=== PATIENT | female | born 1970 | race African-American/Black ===

== ENCOUNTER 2018-01-20 07:48 | Emergency (ER) | payer MEDICAID, OTHER ==
[~2018-01-20] VITALS: Ht 162.6 cm; Wt 102.1 kg
[2018-01-20 09:00] LABS: ABG BASE EXCESS -0.2 MMOL/L (-2.5-2.5); ABG OXYGEN SATURATION 97 % (94-100); ABG PCO2 37 MMHG (35-45); ABG PH 7.42 (7.37-7.43); ABG PO2 76 MMHG (79-93); ABG TCO2 24.8 MMOL/L (21.0-31.0)
[2018-01-20 09:01] LABS: ALLENS TEST YES-POS; INSPIRED O2 ROOM AIR; PATIENT TEMP 98.5; VENTILATOR NO
[2018-01-20] MEDS ORDERED: CETI10CA PO (09:04)
[2018-01-20] MEDS ORDERED: B/P (09:04)
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
[2018-01-20 10:20] VITALS: BP 142/91
== END 2018-01-20 10:26 | disposition home or self-care (01) ==
LOC: ER 07:50
DX: T58.91XA Toxic effect of carbon monoxide from unspecified source, accidental (unintentional), initial encounter (principal); I10 Essential (primary) hypertension; F12.10 Cannabis abuse, uncomplicated; Z87.59 Personal history of other complications of pregnancy, childbirth and the puerperium
CPT/HCPCS: 36600; 82375; 82805; 99285

== ENCOUNTER 2018-04-04 12:27 | Emergency (ER) | payer MEDICAID ==
[~2018-04-04] VITALS: Ht 162.6 cm; Wt 104.3 kg
[~2018-04-04 12:27] MED LIST: B/P; CETI10CA PO
[2018-04-04] MEDS ORDERED: KETOROLAC 60 MG/2 ML VIAL IM ONE (12:45)
[2018-04-04] MEDS ORDERED: morphine INJ 10 MG/ML 1ML (SYR OR VIAL) IJ ONE (12:45)
[2018-04-04] MEDS ORDERED: AMLO5TAB4 PO (12:46)
[2018-04-04] MEDS ORDERED: PRD20T PO (12:46)
--- NOTE | 2018-04-04 12:46 | ED Back Pain ---
General Chief Complaint: Back Problems Stated Complaint: BACK PAIN Nursing Triage Note: PT PRESENTS TO ER WITH COMPLAINT OF LOW BACK PAIN THAT RADIATES DOWN LEFT LEG. Nursing Sepsis Screen: No Definite Risk Source of Information: Patient Exam Limitations: No Limitations History of Present Illness Date Seen by Provider: Apr 04, 2018 Time Seen by Provider: 12:42 Initial Comments To ER per private vehicle with reports of severe midline low back pain that radiates down the left leg. This began 2 days ago after picking up a laundry basket to set atop the dryer. No fevers or chills. No history of cancer. No loss of bowel and bladder control and no loss of sensation of her genitals. She does have a history of a bulging disc in the low back. She takes Zanaflex at home for pain as needed but states that it doesn't really help with the pain. Location: Lumbar Spine Timing/Duration: 1-2 Days Severity: Severe Pain/Injury Location: Back Associated Symptoms: No fever; lower back pain; No loss of bladder control, No loss of bowel control Allergies and Home Medications Allergies Coded Allergies: No Known Drug Allergies (Unverified , 01/20/18) Patient Home Medication List Home Medication List Reviewed: Yes Review of Systems Constitutional: see HPI; No chills EENTM: see HPI Respiratory: no symptoms reported Cardiovascular: no symptoms reported Genitourinary: no symptoms reported Musculoskeletal: see HPI, back pain Skin: no symptoms reported Psychiatric/Neurological: No Symptoms Reported Past Afavezz-Rkbqhv-Scuzdr Hx Patient Social History Alcohol Use: Denies Use Recreational Drug Use: No Smoking Status: Never a Smoker Recent Foreign Travel: No Contact w/Someone Who Travel: No Recent Infectious Disease Expo: No Past Medical History Surgeries: Yes Section, Gallbladder Respiratory: No Cardiac: Yes Hypertension Family Medical History No Pertinent Family Hx Physical Exam Vital Signs Vital Signs - First Documented 04/04/18 12:30 Temp 98.0 Pulse 92 Resp 19 B/P (MAP) 154/118 (130) Pulse Ox 99 O2 Delivery Room Air Capillary Refill : Less Than 3 Seconds Height, Weight, BMI Height: 5'4.00" Weight: 230lbs. oz. 104.425540ba; BMI Method:Stated General Appearance: No Apparent Distress, WD/WN Neck: Full Range of Motion, Normal Inspection Respiratory: No Accessory Muscle Use, No Respiratory Distress Back: Normal Inspection; No Vertebral Tenderness Neurologic/Psychiatric: Alert, Oriented x3 Skin: Normal Color, Warm/Dry Progress/Results/Core Measures Results/Orders My Orders Orders - NORY LOBO APRN Ketorolac Injection (Toradol Injection) (04/04/18 12:45) Morphine Injection (Morphine Injection (04/04/18 12:45) Vital Signs/I&O 04/04/18 12:30 Temp 98.0 Pulse 92 Resp 19 B/P (MAP) 154/118 (130) Pulse Ox 99 O2 Delivery Room Air Blood Pressure Mean: 130 Departure Impression Primary Impression: Lumbar radiculopathy Disposition: HOME, SELF-CARE Condition: Stable Departure-Patient Inst. Decision time for Depature: 12:45 Referrals: [facility] [place] (PCP/Family) Primary Care Physician Patient Instructions: Low Back Pain (DC), Radiculopathy (DC) Add. Discharge Instructions: 1. Steroids as directed 2. Return to ER for any concerns 3. Follow-up with your doctor next week. Call tomorrow to make an appointment to be seen. All discharge instructions reviewed with patient and/or family. Voiced understanding. Scripts Amlodipine Besylate (Norvasc) 5 Mg Tablet 5 MG PO DAILY, #20 TAB Prov: NORY LOBO APRN 04/04/18 Prednisone (Prednisone) 20 Mg Tab 40 MG PO DAILY, #8 TAB Prov: NORY LOBO APRN 04/04/18 NORY LOBO APRN Apr 04, 2018 12:46
[2018-04-04 13:14] VITALS: BP 144/96
== END 2018-04-04 13:14 | disposition home or self-care (01) ==
LOC: EDUNIT# 12:27 → ER 12:28
DX: M54.16 Radiculopathy, lumbar region (principal); I10 Essential (primary) hypertension; Z98.890 Other specified postprocedural states
CPT/HCPCS: 99284

== ENCOUNTER → 2018-05-04 | Outpatient (CLI) | payer MEDICAID ==
[~2018-05-04] MED LIST changes: +AMLO5TAB4 PO; +PRD20T PO
--- NOTE | 2018-05-04 13:13 | Diagnostic Imaging Report ---
PROCEDURE: MRI lumbar spine. TECHNIQUE: Multiplanar, multisequence MRI of the lumbar spine was performed without contrast. INDICATION: Back pain. FINDINGS: There is left convexity degenerative lumbar rotoscoliosis. The vertebral body heights are well maintained. There is no spondylolysis or spondylolisthesis. No fractures are identified. The T12-L1 disc is unremarkable. The L1-L2 disc is unremarkable. The L2-L3 disc is unremarkable. There is some mild facet disease at this level. The L3-L4 disc is unremarkable. There is some facet disease and thickening of the ligamentum flavum at this level. At L4-L5, there is loss of disc height and signal intensity. There is broad-based annular bulging, facet disease, and thickening of the ligamentum flavum. There is mild central spinal stenosis with encroachment upon the lateral recess bilaterally. There is some moderate bilateral neuroforaminal encroachment, right greater than left. At L5-S1, there is broad-based annular bulging and facet disease. There is slight effacement of the ventral thecal sac. There is no focal disc extrusion or spinal stenosis. The abdominal aorta is nonaneurysmal. The kidneys are unremarkable. IMPRESSION: Moderate lower lumbar spondylosis and degenerative disc disease, as detailed above. Dictated by: Dictated on workstation # [id number]
== END ==
LOC: RAD 10:50
PROVIDERS: ATTEND Nurse Practitioner Family
DX: M48.061 Spinal stenosis, lumbar region without neurogenic claudication (principal); M47.816 Spondylosis without myelopathy or radiculopathy, lumbar region; M53.86 Other specified dorsopathies, lumbar region; M99.73 Connective tissue and disc stenosis of intervertebral foramina of lumbar region; M51.27 Other intervertebral disc displacement, lumbosacral region
CPT/HCPCS: 72148

== ENCOUNTER 2019-04-19 21:35 | Observation (INO) | payer MEDICAID ==
[~2019-04-19] VITALS: Ht 162 cm; Wt 115.0 kg
[2019-04-19] MEDS ORDERED: KETOROLAC 30 MG/ML VIAL IVP STA (21:59)
[2019-04-19] MEDS ORDERED: LACTATED RINGERS 1,000 ML IV STA (21:59)
[2019-04-19] MEDS ORDERED: LIDOCAINE 2% VISCOUS 15 ML UDC PO ONE (22:00)
[2019-04-19] MEDS ORDERED: ASPIRIN 81 MG CHEW (CHILDREN'S ASA) PO ONE (22:00)
[2019-04-19] MEDS ORDERED: ANTACID SUSP 30 ML UDC (MYLANTA) PO ONE (22:00)
--- NOTE | 2019-04-19 22:03 | ED Chest Pain ---
General Stated Complaint: CHEST PAIN Source: patient Exam Limitations: no limitations History of Present Illness Date Seen by Provider: Apr 19, 2019 Time Seen by Provider: 21:50 Initial Comments Here with central chest pain that started about 45 minutes ago and was worse but is better now. Worse with deep breathing and better with rest. Noted intermittent jaw pain to the right side over the last several days and also has had some ankle swelling. Timing/Duration: 1 hour, changing over time Severity/Quality: moderate, aching Location: central, epigastric Radiation: jaw Activities at Onset: none Prior CP/Workup: no prior cardiac workup Modifying Factors: worse with breathing ASA po HEAD MECHANIC: No NTG SL HEAD MECHANIC: No Associated Symptoms: edema (bilateral ankles); No fever/chills, No nausea/vomiting, No shortness of breath, No weakness Allergies and Home Medications Allergies Coded Allergies: No Known Drug Allergies (Unverified , 01/20/18) Home Medications Amlodipine Besylate 5 Mg Tablet, 5 MG PO DAILY Prescribed by: NORY LOBO on 04/04/18 124 Prednisone 20 Mg Tab, 40 MG PO DAILY Prescribed by: NORY LOBO on 04/04/18 1246 Patient Home Medication List Home Medication List Reviewed: Yes Review of Systems Review of Systems Constitutional: see HPI; No chills, No diaphoresis, No fever EENTM: No Symptoms Reported Respiratory: See HPI; Denies Cough, Denies Wheezing Cardiovascular: Chest Pain, Edema; Denies Lightheadedness Gastrointestinal: Abdominal Pain (epigastric); Denies Diarrhea, Denies Nausea, Denies Vomiting Genitourinary: No Symptoms Reported Musculoskeletal: No back pain, No neck pain Skin: no symptoms reported Psychiatric/Neurological: No Symptoms Reported All Other Systems Reviewed Negative Unless Noted: Yes Past Xpcsouv-Czavnr-Pxlttg Hx Past Med/Social Hx: Reviewed Nursing Past Med/Soc Hx Patient Social History Alcohol Use: Denies Use Recreational Drug Use: No Smoking Status: Never a Smoker Recent Foreign Travel: No Contact w/Someone Who Travel: No Past Medical History Surgeries: Yes Section, Gallbladder Respiratory: No Cardiac: Yes Hypertension Family Medical History Reviewed Nursing Family Hx No Pertinent Family Hx Physical Exam Vital Signs Capillary Refill : Height, Weight, BMI Height: 5'4.00" Weight: 230lbs. oz. 104.895780my; BMI Method:Stated General Appearance: No Apparent Distress, WD/WN HEENT: PERRL/EOMI, Pharynx Normal Neck: Full Range of Motion, Normal Inspection, Non Tender, Supple Respiratory: Lungs Clear, Normal Breath Sounds Cardiovascular: No Murmur, Tachycardia Gastrointestinal: Non Tender, Soft Extremity: Normal Range of Motion, Non Tender, Pedal Edema (trace bilateral pedal edema) Neurologic/Psychiatric: Alert, Oriented x3 Skin: Normal Color, Warm/Dry Progress/Results/Core Measures Results/Orders Lab Results Laboratory Tests Test 04/19/19 22:00 Range/Units White Blood Count 8.7 4.3-11.0 10^3/uL Red Blood Count 4.88 4.35-5.85 10^6/uL Hemoglobin 9.3 L 11.5-16.0 G/DL Hematocrit 34 L 35-52 % Mean Corpuscular Volume 70 L 80-99 FL Mean Corpuscular Hemoglobin 19 L 25-34 PG Mean Corpuscular Hemoglobin Concent 27 L 32-36 G/DL Red Cell Distribution Width 20.3 H 10.0-14.5 % Platelet Count 397 130-400 10^3/uL Mean Platelet Volume 9.4 7.4-10.4 FL Neutrophils (%) (Auto) 58 42-75 % Lymphocytes (%) (Auto) 33 12-44 % Monocytes (%) (Auto) 8 0-12 % Eosinophils (%) (Auto) 1 0-10 % Basophils (%) (Auto) 0 0-10 % Neutrophils # (Auto) 5.1 1.8-7.8 X 10^3 Lymphocytes # (Auto) 2.9 1.0-4.0 X 10^3 Monocytes # (Auto) 0.7 0.0-1.0 X 10^3 Eosinophils # (Auto) 0.1 0.0-0.3 10^3/uL Basophils # (Auto) 0.0 0.0-0.1 10^3/uL Prothrombin Time 13.4 12.2-14.7 SEC INR Comment 1.0 0.8-1.4 Activated Partial Thromboplast Time 28 24-35 SEC D-Dimer 0.63 H 0.00-0.49 UG/ML Sodium Level 142 135-145 MMOL/L Potassium Level 3.3 L 3.6-5.0 MMOL/L Chloride Level 106 98-107 MMOL/L Carbon Dioxide Level 25 21-32 MMOL/L Anion Gap 11 5-14 MMOL/L Blood Urea Nitrogen 9 7-18 MG/DL Creatinine 0.80 0.60-1.30 MG/DL Estimat Glomerular Filtration Rate > 60 BUN/Creatinine Ratio 11 Glucose Level 113 H 70-105 MG/DL Calcium Level 9.3 8.5-10.1 MG/DL Corrected Calcium 9.3 8.5-10.1 MG/DL Magnesium Level 2.2 1.6-2.4 MG/DL Total Bilirubin 0.2 0.1-1.0 MG/DL Aspartate Amino Transf (AST/SGOT) 8 5-34 U/L Alanine Aminotransferase (ALT/SGPT) 11 0-55 U/L Alkaline Phosphatase 108 40-136 U/L Myoglobin 17.7 10.0-92.0 NG/ML Troponin I < 0.028 <0.028 NG/ML Total Protein 7.9 6.4-8.2 GM/DL Albumin 4.0 3.2-4.5 GM/DL Lipase 35 8-78 U/L My Orders Orders - DIMITRIS TEIXEIRA MD Lidocaine 2% Viscous 15 Ml (Xylocaine Vi (04/19/19 22:00) Antacid Suspension (Mylanta Suspension (04/19/19 22:00) Lactated Ringers (Lr 1000 Ml Iv Solution (04/19/19 21:59) Ketorolac Injection (Toradol Injection) (04/19/19 21:59) Cbc With Automated Diff (04/19/19 21:59) Magnesium (04/19/19 21:59) Chest 1 View, Ap/Pa Only (04/19/19:59) Ekg Tracing (04/19/19:59) Cardiac Profile 1 (04/19/19 21:59) Comprehensive Metabolic Panel (04/19/19 21:59) Myoglobin Serum (04/19/19 21:59) Protime With Inr (04/19/19:59) Partial Thromboplastin Time (04/19/19:59) O2 (04/19/19:59) Monitor-Rhythm Ecg Trace Only (04/19/19 21:59) Lipid Panel (04/20/19 06:00) Lipase (04/19/19 21:59) Aspirin Chewable Tablet (Baby Aspirin Ch (04/19/19 22:00) Fibrin Degradation Products (04/19/19 23:26) Metoprolol Succinate (Xl) Tab (Toprol Xl (04/20/19 00:15) Medications Given in ED Current Medications Medications Dose Ordered Sig/Reji Route Start Time Stop Time Status Last Admin Dose Admin Al Hydrox/Mg Hydrox/Simethicone 30 ml ONCE ONCE PO 04/19/19 22:00 04/19/19 22:02 DC 04/19/19 22:07 30 ML Aspirin 324 mg ONCE ONCE PO 04/19/19 22:00 04/19/19 22:02 DC 04/19/19 22:08 324 MG Lidocaine HCl 15 ml ONCE ONCE PO 04/19/19 22:00 04/19/19 22:01 DC 04/19/19 22:07 15 ML Progress Progress Note : Progress Note Seen and evaluated. IV, labs, EKG, chest x-ray, ASA 324 mg by mouth, GI cocktail and Toradol 15 mg IV. LR 1 L bolus. Monitor patient. 2355: Pain is gotten better but is intermittently returning. Given her history, admission is indicated for rule out. I did discuss the case with Dr. Jacobo and she accepts patient for admission. We will consult cardiology in the morning. Admit observation status. 0005: Toprol-XL 25 mg by mouth. Patient and family agree with plan. Initial ECG Impression Date: Apr 19, 2019 Initial ECG Impression Time: 21:45 Initial ECG Rate: 100 Initial ECG Rhythm: S.Tach Comment Sinus tachycardia with left axis deviation. No evidence of ST elevation GA. No previous available for comparison. Interpreted by me. Diagnostic Imaging Diagonstic Imaging: Xray Plain Films/CT/US/NM/MRI: chest Departure Communication (Admissions) Time/Spoke to Admitting Phy: 23:55 Impression Primary Impression: Chest pain Qualified Codes: R07.9 - Chest pain, unspecified Disposition: 09 ADMITTED INPATIENT Condition: Stable Admissions Decision to Admit Reason: Admit from ER (General) Decision to Admit/Date: Apr 19, 2019 Time/Decision to Admit Time: 23:55 Departure-Patient Inst. Referrals: [facility] (PCP/Family) Primary Care Physician DIMITRIS TEIXEIRA MD Apr 19, 2019 22:03
[2019-04-19 22:06] LABS: BASOPHILS % (AUTO) 0 % (0-10); EOSINOPHILS # (AUTO) 0.1 10^3/uL (0.0-0.3); EOSINOPHILS % (AUTO) 1 % (0-10); HEMATOCRIT 34 % (35-52); HEMOGLOBIN 9.3 G/DL (11.5-16.0); LYMPHOCYTES # (AUTO) 2.9 X 10^3 (1.0-4.0); LYMPHOCYTES % (AUTO) 33 % (12-44); MEAN CORPUSCULAR HEMOGLOBIN 19 PG (25-34); MEAN CORPUSCULAR HGB CONC 27 G/DL (32-36); MEAN CORPUSCULAR VOLUME 70 FL (80-99); MEAN PLATELET VOLUME 9.4 FL (7.4-10.4); MONOCYTES # (AUTO) 0.7 X 10^3 (0.0-1.0); MONOCYTES % (AUTO) 8 % (0-12); NEUTROPHILS # (AUTO) 5.1 X 10^3 (1.8-7.8); NEUTROPHILS % (AUTO) 58 % (42-75); PLATELET COUNT 397 10^3/uL (130-400); RED CELL DISTRIBUTION WIDTH 20.3 % (10.0-14.5); WHITE BLOOD COUNT 8.7 10^3/uL (4.3-11.0)
[2019-04-19 22:34] LABS: PROTHROMBIN TIME PATIENT 13.4 SEC (12.2-14.7)
[2019-04-19 22:39] LABS: ALANINE AMINOTRANSFERASE 11 U/L (0-55); ALKALINE PHOSPHATASE 108 U/L (40-136); BILIRUBIN,TOTAL 0.2 MG/DL (0.1-1.0); BUN/CREATININE RATIO 11; CALCIUM 9.3 MG/DL (8.5-10.1); CARBON DIOXIDE 25 MMOL/L (21-32); CHLORIDE 106 MMOL/L (98-107); GFR ESTIMATED > 60; GLUCOSE 113 MG/DL (70-105); LIPASE 35 U/L (8-78); MAGNESIUM 2.2 MG/DL (1.6-2.4); POTASSIUM 3.3 MMOL/L (3.6-5.0); SODIUM 142 MMOL/L (135-145); TOTAL PROTEIN 7.9 GM/DL (6.4-8.2)
[2019-04-20] MEDS ORDERED: morphine INJ 10 MG/ML 1ML (SYR OR VIAL) IV STA (00:20)
[2019-04-20] MEDS ORDERED: NITROGLYCERIN 0.4 MG SL TABS BTL 25'S SL ONE (00:21)
[2019-04-20] MEDS ORDERED: NITROGLYCERIN 0.4 MG SL TABS BTL 25'S SL PRN ×2 (00:30→03:30)
[2019-04-20 01:30] VITALS: BP 137/72
--- NOTE | 2019-04-20 01:30 | NUR ---
ARYAN BALL admitted to room 422-1, with an admitting diagnosis of chest pain, on 04/19/19 from ED via wheelchair, accompanied by staff. ARYAN BALL introduced to surroundings, call light, bed controls, phone, TV, temperature control, lights, meal times, smoking policy, visitor policy, side rail policy, bathrooms and showers. Patient Rights given to patient in the handbook. ARYAN BALL verbalizes understanding that [facility] is not responsible for the loss or damage to any personal effects or valuables that are kept in the patients posession during their hospitalization.
--- NOTE | 2019-04-20 01:30 | NUR ---
ARYAN BALL admitted to room 422-1, with an admitting diagnosis of CHEST PAIN, on 04/19/19 from ED via WHEELCHAIR, accompanied by STAFF.ARYAN BALL introduced to surroundings, call light, bed controls, phone, TV, temperature control, lights, meal times, smoking policy, visitor policy, side rail policy, bathrooms and showers. Patient Rights given to patient in the handbook. ARYAN BALL verbalizes understanding that [facility] is not responsible for the loss or damage to any personal effects or valuables that are kept in the patients posession during their hospitalization.
[2019-04-20] MEDS ORDERED: NS IV 1000 ML 1,000 ML ONE (01:52)
[2019-04-20] MEDS: NS IV 1000 ML 1,000 ML IV SCH (03:56)
[2019-04-20] MEDS: morphine INJ 4 MG/ML 1 ML (VIAL/SYRINGE) IV PRN ×2 (03:56→23:41)
[2019-04-20 04:00] VITALS: BP 128/79
[2019-04-20 04:36] LABS: BASOPHILS % (AUTO) 0 % (0-10); EOSINOPHILS % (AUTO) 0 % (0-10); HEMATOCRIT 35 % (35-52); HEMOGLOBIN 9.4 G/DL (11.5-16.0); LYMPHOCYTES # (AUTO) 2.9 X 10^3 (1.0-4.0); LYMPHOCYTES % (AUTO) 35 % (12-44); MEAN CORPUSCULAR HEMOGLOBIN 19 PG (25-34); MEAN CORPUSCULAR HGB CONC 27 G/DL (32-36); MEAN CORPUSCULAR VOLUME 70 FL (80-99); MONOCYTES # (AUTO) 0.6 X 10^3 (0.0-1.0); MONOCYTES % (AUTO) 8 % (0-12); NEUTROPHILS # (AUTO) 4.6 X 10^3 (1.8-7.8); NEUTROPHILS % (AUTO) 56 % (42-75); PLATELET COUNT 424 10^3/uL (130-400); RED CELL DISTRIBUTION WIDTH 20.3 % (10.0-14.5); WHITE BLOOD COUNT 8.2 10^3/uL (4.3-11.0)
[2019-04-20 05:06] LABS: ALANINE AMINOTRANSFERASE 11 U/L (0-55); ALKALINE PHOSPHATASE 112 U/L (40-136); BILIRUBIN,TOTAL 0.3 MG/DL (0.1-1.0); BUN/CREATININE RATIO 8; CARBON DIOXIDE 24 MMOL/L (21-32); CHLORIDE 105 MMOL/L (98-107); CHOLESTEROL 167 MG/DL (< 200); CREATINE KINASE 38 U/L (29-168); CREATININE SERUM 0.74 MG/DL (0.60-1.30); GFR ESTIMATED > 60; GLUCOSE 109 MG/DL (70-105); HDL CHOLESTEROL 58 MG/DL (40-60); POTASSIUM 3.8 MMOL/L (3.6-5.0); SODIUM 139 MMOL/L (135-145); TRIGLYCERIDES 57 MG/DL (<150); VLDL CHOLESTEROL 11 MG/DL (5-40)
--- NOTE | 2019-04-20 05:26 | Diagnostic Imaging Report ---
INDICATION: Chest pain Frontal chest obtained at 1028 p.m. There is cardiomegaly. There is marked dextroscoliotic change of thoracic spine. There is minimal central vascular prominence. There is no acute infiltrate or edema or pleural fluid. IMPRESSION: Cardiomegaly. No acute infiltrate or pleural fluid. Marked dextroscoliotic changes. Dictated by: Dictated on workstation # [id number]
--- NOTE | 2019-04-20 07:20 | NUR ---
NOTIFIED DR. BALES OF CONSULT. ASKED IF PT HAD EKG ON FILE, PT DOES. NO NEW ORDERS AT THIS TIME.
[2019-04-20 08:40] VITALS: BP 127/74
[2019-04-20] MEDS: ASPIRIN E.C. 81 MG (ECOTRIN) TAB PO SCH (09:33)
[2019-04-20] MEDS ORDERED: DIPH25CA79 PO (11:14)
[2019-04-20] MEDS ORDERED: AMLO10TA7 PO (11:14)
--- NOTE | 2019-04-20 11:15 | NUR ---
PATIENT STATES SHE TAKES AMLODIPINE DAILY PRESCRIPTION AND TAKES BENADRYL OTC NEEDED.
[2019-04-20 12:00] VITALS: BP 116/80
[2019-04-20 12:03] LABS: CREATINE KINASE 32 U/L (29-168)
[2019-04-20 16:00] VITALS: BP 142/83
--- NOTE | 2019-04-20 17:54 | Consultation-Cardiology ---
HPI-Cardiology Cardiology Consultation: Date of Consultation 04/20/19 Time Seen by a Provider: 12:45 Date of Admission 04/19/19 Attending Physician Sandra Jacobo MD Admitting Physician [place] [place] Consulting Physician JONAS BALES MD, MA, FACP, FACC, FSCAI, CCDS HPI: Chief Complaint: CC: Chest discomfort HPI: 49 yo woman with several years of intermittent chest pain who was admitted through the ER on 04/19/[address] Jacobo for presenting with lower chest and abdominal pain that was moderate in intensity, dull, radiating to the back, w/o aggravating or reliving factors, similar to previous being but lasting longer and more intense. It resolved gradually over several hours and has since not rec urred. She has chronic, slowly progressive, exertional shortness of breath She has chronic, intermittent ankle swelling that progresses with the day and resolves overnight She has chronic, occasional palpitations that consist of a feeling of a rapid flip-flop lasting a second or two, but sometime frequently repetitive Review of Systems-Cardiology Review of Systems Constitutional: tiredness; No weight loss, No weight gain Eyes: No vision change Ears/Nose/Throat: No ear discharge, No nasal drainage, No recent hearing loss Respiratory: As described under HPI Cardiovascular: As described under HPI Gastrointestinal: As described under HPI; No constipation, No diarrhea, No vomiting, No stool coloration changes Genitourinary: No dysuria, No hematuria, No urine frequency changes Musculoskeletal: back pain (chronic) Skin: No rash Psychiatric/Neurological: No seizure, No focal weakness, No syncope Hematologic: No bleeding abnormalities All Other Systems Reviewed Negative Unless Noted: Yes ZQZ-Bohfvo-Eujtme Hx Patient Social History Alcohol Use: Denies Use Recreational Drug Use: No Drug of Choice: MARIJUANA Smoking Status: Never a Smoker Recent Foreign Travel: No Recent Infectious Disease Expo: No Hospitalization with Isolation: Denies Immunizations Up To Date Date of Pneumonia Vaccine: Apr 05, 2016 Past Medical History PMH As described under Assessment. Family Medical History Family Medical History: She does not report fam h/o early CAD or SCD Family History: Patient reports no known family medical history. Allergies and Home Medications Allergies Coded Allergies: No Known Drug Allergies (Unverified , 01/20/18) Home Medications Amlodipine Besylate 10 Mg Tablet, 10 MG PO HS, (Reported) Diphenhydramine HCl 25 Mg Capsule, 25 MG PO Q6H PRN for ALLERGIES, (Reported) Patient Home Medication List Home Medication List Reviewed: Yes Physical Exam-Cardiology Physical Exam Vital Signs/I&O 04/20/19 04/20/19 04/20/19 04/20/19 07:00 08:00 08:40 09:33 Temp 36.2 36.2 Pulse 73 74 Resp 20 B/P (MAP) 127/74 (91) Pulse Ox 99 99 O2 Delivery Room Air Room Air 04/20/19 04/20/19 04/20/19 04/20/19 10:05 12:00 12:22 16:00 Temp 36.2 36.7 36.6 Pulse 66 67 71 Resp 20 16 B/P (MAP) 116/80 (92) 142/83 (102) Pulse Ox 99 98 O2 Delivery Room Air Room Air Capillary Refill : Less Than 3 Seconds Constitutional: AAO x 3, well-developed, well-nourished HEENT: PERRL, EOMI Neck: carotid pulses are 2 + bilaterally, with good upstrokes Respiratory: No accessory muscle use; lungs clear to percussion, lungs clear to auscultation, other Cardiovascular: regular rate-rhythm, S1 and S2, systolic murmur (soft KAUSHAL at card base) Gastrointestinal: No tender; soft; No guarding, No rebound; audible bowel sound s Extremities: No clubbing, No cyanosis, No significant edema Neurologic/Psychiatric: oriented x 3, grossly intact, power is 5/5 both on sides Skin: No rash on exposed areas, No ulcerations on exposed areas Data Review Labs Laboratory Tests 04/19/19 22:00: White Blood Count 8.7, Red Blood Count 4.88, Hemoglobin 9.3L, Hematocrit 34L, Mean Corpuscular Volume 70L, Mean Corpuscular Hemoglobin 19L, Mean Corpuscular Hemoglobin Concent 27L, Red Cell Distribution Width 20.3H, Platelet Count 397, Mean Platelet Volume 9.4, Neutrophils (%) (Auto) 58, Lymphocytes (%) (Auto) 33, Monocytes (%) (Auto) 8, Eosinophils (%) (Auto) 1, Basophils (%) (Auto) 0, Neutrophils # (Auto) 5.1, Lymphocytes # (Auto) 2.9, Monocytes # (Auto) 0.7, Eosinophils # (Auto) 0.1, Basophils # (Auto) 0.0, Prothrombin Time 13.4, INR Comment 1.0, Activated Partial Thromboplast Time 28, D-Dimer 0.63H, Sodium Level 142, Potassium Level 3.3L, Chloride Level 106, Carbon Dioxide Level 25, Anion Gap 11, Blood Urea Nitrogen 9, Creatinine 0.80, Estimat Glomerular Filtration Rate > 60, BUN/Creatinine Ratio 11, Glucose Level 113H, Calcium Level 9.3, Corrected Calcium 9.3, Magnesium Level 2.2, Total Bilirubin 0.2, Aspartate Amino Transf (AST/SGOT) 8, Alanine Aminotransferase (ALT/SGPT) 11, Alkaline Phosphatase 108, Myoglobin 17.7, Troponin I < 0.028, Total Protein 7.9, Albumin 4.0, Lipase 35 04/20/19 04:20: White Blood Count 8.2, Red Blood Count 4.96, Hemoglobin 9.4L, Hematocrit 35, Mean Corpuscular Volume 70L, Mean Corpuscular Hemoglobin 19L, Mean Corpuscular Hemoglobin Concent 27L, Red Cell Distribution Width 20.3H, Platelet Count 424H, Mean Platelet Volume 10.0, Neutrophils (%) (Auto) 56, Lymphocytes (%) (Auto) 35, Monocytes (%) (Auto) 8, Eosinophils (%) (Auto) 0, Basophils (%) (Auto) 0, Neutrophils # (Auto) 4.6, Lymphocytes # (Auto) 2.9, Monocytes # (Auto) 0.6, Eosinophils # (Auto) 0.0, Basophils # (Auto) 0.0, Sodium Level 139, Potassium Level 3.8, Chloride Level 105, Carbon Dioxide Level 24, Anion Gap 10, Blood Urea Nitrogen 6L, Creatinine 0.74, Estimat Glomerular Filtration Rate > 60, BUN/Creatinine Ratio 8, Glucose Level 109H, Calcium Level 9.0, Corrected Calcium 9.0, Total Bilirubin 0.3, Aspartate Amino Transf (AST/SGOT) 11, Alanine Aminotransferase (ALT/SGPT) 11, Alkaline Phosphatase 112, Troponin I < 0.028, Total Protein 8.0, Albumin 4.0, Total Creatine Kinase 38, Triglycerides Level 57, Cholesterol Level 167, LDL Cholesterol Direct 102, VLDL Cholesterol 11, HDL Cholesterol 58 04/20/19 11:15: Troponin I < 0.028, Total Creatine Kinase 32 Laboratory Tests 04/19/19 22:00 04/20/19 04:20 A/P-Cardiology Assessment/Admission Diagnosis Chest discomfort w/o evidence of ACS, etiology undetermined Anemia of undetermined etiology, managed by Dr Jacobo Hypertension Obesity with BMI approx 44 Discussion and Recomendations * Given nonspecific chest discomfort in the setting of multiple risk factors, we recommend MPI to eval for cor ischemia and echo to eval for structural heart disease * We recommend test prior to MPI * We reviewed risk factor modification with her * We recommend eval and treatment of patient's anemia Clinical Quality Measures AMI/AHF: ASA po Prior to arrival: No DVT/VTE Risk/Contraindication: Risk Factor Score Per Nursin RFS Level Per Nursing on Admit: 2=Moderate JONAS BALES MD FACP FAC CCDS Apr 20, 2019 17:54
[2019-04-20 19:30] VITALS: BP 129/80
--- NOTE | 2019-04-20 22:41 | History & Physical ---
HPI History of Present Illness: 49 yo F that presented with chest pain that started when she was walking around her house. She has had several episodes of chest pain and states that she has had shortness of breath with chest pain with radiation to left shoulder. Denies any previous chest pain or CAD. No family h/o CAD but significant family h/o HTN and Asthma. Patient states that she took Phen Phen about 10 years ago and is worried that she did something to her heart. She is a well controlled HTN patient with norvasc. Denies missing any doses of medications. Has never had a heart workup prior to this hospitalization. Denies any recurrent episodes since admission. She has been up walking around the room. Source: patient Exam Limitations: no limitations Date seen by provider: Apr 20, 2019 Time Seen by Provider: 11:05 Attending Physician Juan Jose Jacobo MD PCP [place] [facility] [place] Consult Date of Admission Apr 19, 2019 at 23:55 Home Medications Home Medications Reviewed patient Home Medication Reconciliation performed by pharmacy medication reconciliations auto glass technician and/or nursing. Patients Allergies have been reviewed. Allergies Coded Allergies: No Known Drug Allergies (Unverified , 01/20/18) UBG-Tjajdb-Aimlsx Hx Patient Social History Alcohol Use: Denies Use Recreational Drug Use: No Drug of Choice: MARIJUANA Smoking Status: Never a Smoker Recent Foreign Travel: No Contact w/other who traveled: No Recent Hopitalizations: No Recent Infectious Disease Expo: No Immunizations Up To Date Date of Pneumonia Vaccine: Apr 05, 2016 Past Medical History HTN BMI 40, Obesity Family Medical History Significant Family History: Hypertension Family History: Patient reports no known family medical history. Review of Systems ([facility]) Constitutional: no symptoms reported; No chills, No fever, No weakness EENTM: no symptoms reported; No mouth pain, No nose congestion, No nose pain, No throat pain Respiratory: dyspnea on exertion; No orthopnea; short of breath Cardiovascular: chest pain; No edema, No palpitations Gastrointestinal: no symptoms reported; No abdominal pain, No constipation, No diarrhea, No nausea, No vomiting Genitourinary: no symptoms reported; No dysuria, No frequency, No hematuria Musculoskeletal: no symptoms reported; No back pain, No joint pain, No muscle pain Skin: no symptoms reported Psychiatric/Neurological: No Symptoms Reported Reviewed Test Results Reviewed Test Results Lab Laboratory Tests Test 04/20/19 04:20 04/20/19 11:15 Range/Units White Blood Count 8.2 4.3-11.0 10^3/uL Red Blood Count 4.96 4.35-5.85 10^6/uL Hemoglobin 9.4 L 11.5-16.0 G/DL Hematocrit 35 35-52 % Mean Corpuscular Volume 70 L 80-99 FL Mean Corpuscular Hemoglobin 19 L 25-34 PG Mean Corpuscular Hemoglobin Concent 27 L 32-36 G/DL Red Cell Distribution Width 20.3 H 10.0-14.5 % Platelet Count 424 H 130-400 10^3/uL Mean Platelet Volume 10.0 7.4-10.4 FL Neutrophils (%) (Auto) 56 42-75 % Lymphocytes (%) (Auto) 35 12-44 % Monocytes (%) (Auto) 8 0-12 % Eosinophils (%) (Auto) 0 0-10 % Basophils (%) (Auto) 0 0-10 % Neutrophils # (Auto) 4.6 1.8-7.8 X 10^3 Lymphocytes # (Auto) 2.9 1.0-4.0 X 10^3 Monocytes # (Auto) 0.6 0.0-1.0 X 10^3 Eosinophils # (Auto) 0.0 0.0-0.3 10^3/uL Basophils # (Auto) 0.0 0.0-0.1 10^3/uL Sodium Level 139 135-145 MMOL/L Potassium Level 3.8 3.6-5.0 MMOL/L Chloride Level 105 98-107 MMOL/L Carbon Dioxide Level 24 21-32 MMOL/L Anion Gap 10 5-14 MMOL/L Blood Urea Nitrogen 6 L 7-18 MG/DL Creatinine 0.74 0.60-1.30 MG/DL Estimat Glomerular Filtration Rate > 60 BUN/Creatinine Ratio 8 Glucose Level 109 H 70-105 MG/DL Calcium Level 9.0 8.5-10.1 MG/DL Corrected Calcium 9.0 8.5-10.1 MG/DL Total Bilirubin 0.3 0.1-1.0 MG/DL Aspartate Amino Transf (AST/SGOT) 11 5-34 U/L Alanine Aminotransferase (ALT/SGPT) 11 0-55 U/L Alkaline Phosphatase 112 40-136 U/L Total Creatine Kinase 38 32 29-168 U/L Troponin I < 0.028 < 0.028 <0.028 NG/ML Total Protein 8.0 6.4-8.2 GM/DL Albumin 4.0 3.2-4.5 GM/DL Triglycerides Level 57 <150 MG/DL Cholesterol Level 167 < 200 MG/DL LDL Cholesterol Direct 102 1-129 MG/DL VLDL Cholesterol 11 5-40 MG/DL HDL Cholesterol 58 40-60 MG/DL Serum Test, Qualitative NEGATIVE NEGATIVE Physical Exam-(CHC) Physical Exam Vital Signs VS - Last 72 Hours, by Label 04/19/19 04/19/19 04/20/19 04/20/19 21:42 21:42 01:20 01:30 Temp 37.5 37.5 Pulse 105 84 Resp 18 18 B/P (MAP) 149/91 (110) 130/93 (110) Pulse Ox 100 O2 Delivery Room Air Room Air Room Air 04/20/19 04/20/19 04/20/19 04/20/19 01:30 03:44 04:00 07:00 Temp 36.5 36.2 Pulse 76 74 76 73 Resp 20 18 B/P (MAP) 137/72 128/79 (95) Pulse Ox 99 99 O2 Delivery Room Air Room Air 04/20/19 04/20/19 04/20/19 04/20/19 08:00 08:40 09:33 10:05 Temp 36.2 36.2 36.2 Pulse 74 Resp 20 B/P (MAP) 127/74 (91) Pulse Ox 99 99 O2 Delivery Room Air Room Air 04/20/19 04/20/19 04/20/19 04/20/19 12:00 12:22 16:00 18:53 Temp 36.7 36.6 Pulse 66 67 71 70 Resp 20 16 B/P (MAP) 116/80 (92) 142/83 (102) Pulse Ox 99 98 O2 Delivery Room Air Room Air 04/20/19 04/20/19 19:30 20:00 Temp 36.1 Pulse 65 Resp 20 B/P (MAP) 129/80 (96) Pulse Ox 100 99 O2 Delivery Room Air Room Air Capillary Refill : Less Than 3 Seconds General Appearance: WD/WN, no apparent distress, obese HEENT: PERRL/EOMI Neck: non-tender, full range of motion, supple Respiratory: chest non-tender, lungs clear, normal breath sounds, no respiratory distress, no accessory muscle use Cardiovascular: regular rate, rhythm, no edema, no murmur Gastrointestinal: normal bowel sounds, non tender, soft, no organomegaly Back: no CVA tenderness, no vertebral tenderness Extremities: normal range of motion, normal inspection, no pedal edema, no calf tenderness, normal capillary refill Neurologic/Psychiatric: purchasing engineer II-XII nml as tested, no motor/sensory deficits, alert, normal mood/affect, oriented x 3 Skin: normal color, warm/dry Lymphatic: no adenopathy Assessment/Plan Assessment/Plan Admission Status: Observation (1) Atypical chest pain Status: Acute Assessment & Plan: - Cardiology consulted, Normal Echo, stress testing tomorrow (2) HTN (hypertension) Status: Chronic Assessment & Plan: - Will monitor blood pressure given addition of BB Qualifiers: Qualified Codes: I10 - Essential (primary) hypertension (3) Microcytic anemia Status: Acute Assessment & Plan: - Iron studies pending, will start iron supplementation (4) BMI 40.0-44.9, adult Status: Chronic Clinical Quality Measures AMI/AHF: ASA po Prior to arrival: No DVT/VTE Risk/Contraindication: Risk Factor Score Per Nursin RFS Level Per Nursing on Admit: 2=Moderate JUAN JOSE JACOBO MD Apr 20, 2019 22:41
[2019-04-21 00:15] VITALS: BP 127/85
[2019-04-21 04:35] VITALS: BP 102/69
[2019-04-21 06:10] LABS: BASOPHILS % (AUTO) 0 % (0-10); EOSINOPHILS # (AUTO) 0.1 10^3/uL (0.0-0.3); EOSINOPHILS % (AUTO) 1 % (0-10); HEMATOCRIT 33 % (35-52); HEMOGLOBIN 8.8 G/DL (11.5-16.0); LYMPHOCYTES # (AUTO) 2.8 X 10^3 (1.0-4.0); LYMPHOCYTES % (AUTO) 37 % (12-44); MEAN CORPUSCULAR HEMOGLOBIN 19 PG (25-34); MEAN CORPUSCULAR HGB CONC 27 G/DL (32-36); MEAN CORPUSCULAR VOLUME 71 FL (80-99); MEAN PLATELET VOLUME 10.2 FL (7.4-10.4); MONOCYTES # (AUTO) 0.8 X 10^3 (0.0-1.0); MONOCYTES % (AUTO) 10 % (0-12); NEUTROPHILS % (AUTO) 52 % (42-75); PLATELET COUNT 388 10^3/uL (130-400); RED CELL DISTRIBUTION WIDTH 20.1 % (10.0-14.5); WHITE BLOOD COUNT 7.6 10^3/uL (4.3-11.0)
[2019-04-21] MEDS: NS IV 1000 ML 1,000 ML IV SCH (06:15)
[2019-04-21 06:24] LABS: BUN/CREATININE RATIO 15; CALCIUM 8.8 MG/DL (8.5-10.1); CARBON DIOXIDE 21 MMOL/L (21-32); CHLORIDE 105 MMOL/L (98-107); CREATININE SERUM 0.71 MG/DL (0.60-1.30); GFR ESTIMATED > 60; GLUCOSE 76 MG/DL (70-105); POTASSIUM 3.6 MMOL/L (3.6-5.0); SODIUM 136 MMOL/L (135-145)
[2019-04-21 08:00] VITALS: BP 133/87
--- NOTE | 2019-04-21 08:12 | NUR ---
left floor for stress test at this time
[2019-04-21] MEDS ORDERED: CATHETER FLUSH 10 ML SYR IV PRN ×2 (08:30)
[2019-04-21] MEDS ORDERED: REGADENOSON 0.4 MG/5 ML SYR (LEXISCAN) IV ONE ×2 (09:00→09:01)
--- NOTE | 2019-04-21 09:32 | Progress Note - Cardiology ---
Cardiology SOAP Progress Note Subjective: No further c/o CP, dyspnea, syncope, near syncope or palpitations Objective: I&O/Vital Signs 04/21/19 04/21/19 04/21/19 04/21/19 07:00 08:00 08:00 12:00 Temp 36.7 36.3 Pulse 71 71 70 Resp 20 20 B/P (MAP) 133/87 (102) 128/88 (101) Pulse Ox 96 100 O2 Delivery Room Air Room Air Room Air 04/21/19 04/21/19 13:00 16:18 Temp 36.0 Pulse 69 62 Resp 20 B/P (MAP) 130/80 (97) Pulse Ox 99 O2 Delivery Room Air 04/21/19 00:00 Intake Total 870 ml Balance 870 ml Weight (Pounds): 230 Weight (Calculated Kilograms): [phone] Constitutional: AAO x 3, well-developed, well-nourished Respiratory: No accessory muscle use; lungs clear to percussion, lungs clear to auscultation, other Cardiovascular: regular rate-rhythm, S1 and S2, systolic murmur (soft KAUSHAL at card base) Gastrointestional: No tender; soft; No guarding, No rebound; audible bowel sounds Extremities: No clubbing, No cyanosis, No significant edema Neurologic/Psychiatric: oriented x 3, grossly intact, power is 5/5 both on sides Skin: No rash on exposed areas, No ulcerations on exposed areas Results/Procedures: Labs Laboratory Tests 04/21/19 05:28: White Blood Count 7.6, Red Blood Count 4.65, Hemoglobin 8.8L, Hematocrit 33L, Mean Corpuscular Volume 71L, Mean Corpuscular Hemoglobin 19L, Mean Corpuscular Hemoglobin Concent 27L, Red Cell Distribution Width 20.1H, Platelet Count 388, Mean Platelet Volume 10.2, Neutrophils (%) (Auto) 52, Lymphocytes (%) (Auto) 37, Monocytes (%) (Auto) 10, Eosinophils (%) (Auto) 1, Basophils (%) (Auto) 0, Neutrophils # (Auto) 4.0, Lymphocytes # (Auto) 2.8, Monocytes # (Auto) 0.8, Eosinophils # (Auto) 0.1, Basophils # (Auto) 0.0, Sodium Level 136, Potassium L evel 3.6, Chloride Level 105, Carbon Dioxide Level 21, Anion Gap 10, Blood Urea Nitrogen 11, Creatinine 0.71, Estimat Glomerular Filtration Rate > 60, BUN/Creatinine Ratio 15, Glucose Level 76, Calcium Level 8.8, Iron Level 19L, Total Iron Binding Capacity 340, Unsaturated Iron Binding Capacity 321, Transferrin % Saturation 6L Laboratory Tests 04/19/19 22:00 04/20/19 04:20 04/21/19 05:28 A/P: Assessment: Chest discomfort w/o evidence of ACS, etiology undetermined Echo of Apr 20, 2019 showed LVEF 55-60%. Mild TR. PASP 33mmHg MPI of Apr 21, 2019: no ischemia or infarction, normal wall motion and LVEF Anemia of undetermined etiology, managed by Dr Jacobo Hypertension Obesity with BMI approx 44 Plan: * We reviewed risk factor modification with her * We recommend eval and treatment of patient's anemia Physician Assessment Physician Assessment No cp or palp or syncope Chronic, mod exertional shortness of breath Mild gen malaise Cor: reg Lungs: good bilat air entry Ext: no c/c/e A&R * As documented in our note above that I updated (italics) and as noted below * I discussed her CV w/u with her in detail (summarized above) * Based on cardiac w/u, chest discomfort is not of cardiac origin * Ok to d/c from cardiac standpoint. Outpt cardiac w/u is advised * W/u for and treatment of anemia is with Dr Jacobo Clinical Quality Measures AMI/AHF: ASA po Prior to arrival: No [employer] Apr 21, 2019 09:32 JONAS BALES MD FACP FAC CCDS Apr 21, 2019 18:03
[2019-04-21] MEDS: ASPIRIN E.C. 81 MG (ECOTRIN) TAB PO SCH (10:16)
[2019-04-21 12:00] VITALS: BP 128/88
[2019-04-21] MEDS ORDERED: MTP25TSR PO (12:25)
[2019-04-21] MEDS ORDERED: ASPI-983 PO (12:25)
[2019-04-21] MEDS ORDERED: AMLO10TA7 PO (12:25)
[2019-04-21] MEDS ORDERED: IRON SUCROSE 200 MG/10 ML (VENOFER) VIAL IV NR (12:30)
--- NOTE | 2019-04-21 12:31 | Discharge Instructions ---
Discharge [facility] Reconcile Patient Problems Problems Reviewed?: Yes Discharge Medications New, Converted or Re-Newed RX: Transmitted to Pharmacy New Medications: Aspirin (Aspirin EC) 81 Mg Tablet.dr 81 MG PO DAILY, #30 TAB Metoprolol Succinate (Metoprolol Succinate) 25 Mg Tab.er.24h 25 MG PO DAILY, #30 TAB Changed Medications: Amlodipine Besylate (Amlodipine Besylate) 10 Mg Tablet 5 MG PO HS, #30 TAB (Changed from: 10 MG) Take 1/2 of the 10 mg tabs that you already have Continued Medications: Diphenhydramine HCl (Benadryl) 25 Mg Capsule 25 MG PO Q6H PRN for ALLERGIES, CAP Patient Instructions Goal/Follow Up Appt: You have a f.u with Trin[facility] on Apr @ 2 PM Activity & Diet Discharge Diet: Cardiac Diet Activity as Tolerated: Yes JUAN JOSE SAINZ MD Apr 21, 2019 12:30
[2019-04-21] MEDS: morphine INJ 4 MG/ML 1 ML (VIAL/SYRINGE) IV PRN (13:42)
[2019-04-21 16:18] VITALS: BP 130/80
[2019-04-21] MEDS ORDERED: ONDANSETRON 4 MG/2 ML (SDV) Z0FRAN IVP PRN (17:45)
--- NOTE | 2019-04-21 18:44 | STRESS TEST ---
DATE OF SERVICE: 04/21/2019 RESTING AND POST REGADENOSON TECHNETIUM-99M TETROFOSMIN SPECT CT IMAGING ORDERING PHYSICIAN: Dr. Delgado. PRIMARY PHYSICIAN: Dr. Jacobo. OTHER PHYSICIAN: Kandis Norwood APRN CLINICAL DIAGNOSIS: Chest discomfort. Baseline images were carried out after injection of 9.83 mCi of technetium-99m Tetrofosmin. This was followed by 0.4 mg regadenoson and 32.2 mCi of technetium-99m Tetrofosmin for stress imaging. The electrocardiogram showed sinus rhythm at baseline. It did not change significantly with regadenoson infusion. Review of images at rest and following stress does not indicate any significant perfusion defects consistent with significant myocardial ischemia or infarction. Gated images show normal global left ventricular systolic function with normal regional wall motion. Left ventricular ejection fraction is calculated to be 65%. Left ventricular end diastolic volume is 43 mL. TID is absent (1.01). CONCLUSIONS: 1. No evidence of any significant myocardial ischemia or infarction is seen. 2. Normal regional wall motion. 3. Normal global left ventricular systolic function with a calculated ejection fraction of 65%. Job ID: [id number] DocumentID: [id number] Dictated Date: 04/21/2019 17:46:25 Resource Recovery Engineer Date: 04/21/2019 18:43:52 Dictated By: JONAS DELGADO MD, MA, FACP, FACC,
--- NOTE | 2019-04-26 15:42 | Physician Query-Final Dx ---
CRUZ NIEVES 04/26/19 1542: Final Diagnosis Give Final Diagnosis Please give Final Diagnosis JUAN JOSE SAINZ MD 05/02/192120: Final Diagnosis Give Final Diagnosis Please see D/c Summary CRUZ NIEVES Apr 26, 2019 15:42 POSJUAN JOSE SAINZ MD May 02, 2019 21:21 POS
--- OUTSIDE RECORDS SUMMARY | 2019-05-12 17:02 | XMS REPORT | Continuity of Care Document ---
Author Organization Unknown POS Address Unknown SP Phone Unavailable SP Allergies Active Description Code Type Severity POS Reaction Onset Reported/Identified POS to Patient Clinical Status POS Yes No Known Drug Allergies [id number] Drug SP Unknown N/A 01/20/2018 SP SP Medications There is no data. Problems Date Dx Coded Attending Type Code POS Diagnosed By POS 01/20/2018 DIMITRIS TEIXEIRA MD Ot F12.10 SP CANNABIS ABUSE, UNCOMPLICATED SP 01/20/2018 DIMITRIS TEIXEIRA MD Ot I10 SP ESSENTIAL (PRIMARY) HYPERTENSION SP 01/20/2018 DIMITRIS TEIXEIRA MD Ot T58.91XA SP TOXIC EFFECT OF CARB MONX FROM UNSP SOUR SP 01/20/2018 DIMITRIS TEIXEIRA MD Ot Z87.59 SP PERSONAL HISTORY OF COMP OF PREG, CHLDBR SP 01/22/2018 DIMITRIS TEIXEIRA MD Ot F12.10 SP CANNABIS ABUSE, UNCOMPLICATED SP 01/22/2018 DIMITRIS TEIXEIRA MD Ot I10 SP ESSENTIAL (PRIMARY) HYPERTENSION SP 01/22/2018 DIMITRIS TEIXEIRA MD Ot T58.91XA SP TOXIC EFFECT OF CARB MONX FROM UNSP SOUR SP 01/22/2018 DIMITRIS TEIXEIRA MD Ot Z87.59 SP PERSONAL HISTORY OF COMP OF PREG, CHLDBR SP 2018 NORY LOBO APRN Ot I10 SP (PRIMARY) HYPERTENSION SP 2018 NORY LOBO APRN Ot M54.16 SP RADICULOPATHY, LUMBAR REGION SP 2018 NORY LOBO APRN Ot M54 .5 SP BACK PAIN SP 2018 NORY LOBO APRN Ot Z98.890 SP OTHER SPECIFIED POSTPROCEDURAL STATES SP 04/07/2018 NORY LOBO APRN Ot I10 SP (PRIMARY) HYPERTENSION SP 04/07/2018 NORY LOBO APRN Ot M54.16 SP RADICULOPATHY, LUMBAR REGION SP 04/07/2018 NORY LOBO MEDIA PRODUCTION SUPPORT MANAGER Ot M54 .5 SP BACK PAIN SP 04/07/2018 NORY LOBO MEDIA PRODUCTION SUPPORT MANAGER Ot Z98.890 SP OTHER SPECIFIED POSTPROCEDURAL STATES SP 05/22/2018 KING OTILIO D MEDIA PRODUCTION SUPPORT MANAGER Ot M47.816 SP SPONDYLOSIS W/O MYELOPATHY OR RADICULOPA SP 05/22/2018 MICHAEL, OTILIO D MEDIA PRODUCTION SUPPORT MANAGER Ot M48.061 SP SPINAL STENOSIS, LUMBAR REGION WITHOUT N SP 05/22/2018 MICHAEL, OTILIO D MEDIA PRODUCTION SUPPORT MANAGER Ot M51.27 SP OTHER INTERVERTEBRAL DISC DISPLACEMENT, SP 05/22/2018 MICHAEL, OTILIO D MEDIA PRODUCTION SUPPORT MANAGER Ot M53.86 SP OTHER SPECIFIED DORSOPATHIES, LUMBAR REG SP 05/22/2018 MICHAEL, OTILIO D MEDIA PRODUCTION SUPPORT MANAGER Ot M99.73 SP CONN TISS AND DISC STENOS OF INTVRT FORA SP 04/20/2019 MICHAEL, OTILIO D MEDIA PRODUCTION SUPPORT MANAGER Ot M47.816 SP SPONDYLOSIS W/O MYELOPATHY OR RADICULOPA SP 04/20/2019 MICHAEL, OTILIO D MEDIA PRODUCTION SUPPORT MANAGER Ot M48.061 SP SPINAL STENOSIS, LUMBAR REGION WITHOUT N SP 04/20/2019 MICHAEL, OTILIO D MEDIA PRODUCTION SUPPORT MANAGER Ot M51.27 SP OTHER INTERVERTEBRAL DISC DISPLACEMENT, SP 04/20/2019 MICHAEL, OTILIO D MEDIA PRODUCTION SUPPORT MANAGER Ot M53.86 SP OTHER SPECIFIED DORSOPATHIES, LUMBAR REG SP 04/20/2019 MICHAEL, OTILIO D MEDIA PRODUCTION SUPPORT MANAGER Ot M99.73 SP CONN TISS AND DISC STENOS OF INTVRT FORA SP 04/21/2019 JUAN JOSE SAINZ MD Ot D50.9 SP DEFICIENCY ANEMIA, UNSPECIFIED SP 04/21/2019 JUAN JOSE SAINZ MD Ot E66.9 SP UNSPECIFIED SP 04/21/2019 JUAN JOES SAINZ MD Ot I10 SP (PRIMARY) HYPERTENSION SP 04/21/2019 JUAN JOSE SAINZ MD Ot R07.9 SP PAIN, UNSPECIFIED SP 04/21/2019 JUAN JOSE SAINZ MD Ot Z68.4 1 SP MASS INDEX (BMI) 40.0-44.9, ADULT SP 04/21/2019 JUAN JOSE SAINZ MD Ot Z79.8 99 SP GROUP HOME (CURRENT) DRUG THERAPY SP 04/21/2019 JUAN JOSE SAINZ MD Ot Z82.4 9 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 SP 04/21/2019 JUAN JOSE SAINZ MD, Ot Z90.4 9 SP ABSENCE OF OTHER SPECIFIED PART SP 04/21/2019 JUAN JOSE SAINZ MD Ot D50.9 SP DEFICIENCY ANEMIA, UNSPECIFIED SP 04/21/2019 JUAN JOSE SAINZ MD, Ot E66.9 SP UNSPECIFIED SP 04/21/2019 JUAN JOSE SAINZ MD, Ot I10 SP (PRIMARY) HYPERTENSION SP 04/21/2019 JUAN JOSE SAINZ MD, Ot R07.9 SP PAIN, UNSPECIFIED SP 04/21/2019 JUAN JOSE SAINZ MD, Ot Z68.4 1 SP MASS INDEX (BMI) 40.0-44.9, ADULT SP 04/21/2019 JUAN JOSE SAINZ MD, Ot Z79.8 99 SP GROUP HOME (CURRENT) DRUG THERAPY SP 04/21/2019 JUAN JOSE SAINZ MD, Ot Z82.4 9 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 Results Test Result Range POS Blood carboxyhemoglobin/total hemoglobin - 01/20/18 08:49 POS Blood carboxyhemoglobin/total hemoglobin 4.1 % 0.5-2.5 SP Arterial blood gas measurement - 8 08:52 POS Blood pCO2 37 mm[Hg] 35-45 SP Blood pO2 76 mm[Hg] 79-93 SP Arterial blood bicarbonate measurement (moles/volume) 24 mmol/L SP 23-27 SP Arterial blood base excess by calculation -0.2 mmo l/L SP Arterial blood oxygen saturation measurement 97 % 94-100 SP * Inhaled oxygen flow rate ROOM AIR NRG SP Arterial blood pH measurement with patient temperature correction 7.42 SP 7.37-7.43 SP Arterial blood carbon dioxide, total measurement (mole s/volume) 24.8 SP 21.0-31.0 SP Body site R RAD NRG SP Assessment of wrist artery patency prior to arterial p uncture YES-POS SP NRG SP Setting of ventilation mode NO NR G SP Measurement of body temperature 98.5 NRG SP Complete blood count (CBC) with automate d white blood cell (WBC) differential - POS 22:00 Blood leukocytes automated count (number/volume) 8.7 10*3/uL POS 4.3-11.0 SP Blood erythrocytes automated count (number/volume) 4.88 10*6/uL SP 4.35-5.85 SP Venous blood hemoglobin measurement (mass/volume) 9.3 g/dL SP16.0 Blood hematocrit (volume fraction) 34 % 35-52 SP Automated erythrocyte mean corpuscular volume 70 [ foz_us] SP99 Automated erythrocyte mean corpuscular h emoglobin (mass per erythrocyte) SP 19 pg 25-34 SP Automated erythrocyte mean corpuscular h emoglobin concentration measurement SP 27 g/dL 32-36 SP Automated erythrocyte distribution width ratio 20. 3 % 10.0- SP Automated blood platelet count (count/volume) 397 10*3/uL SP400 Automated blood platelet mean volume measurement 9.4 [foz_us] SP 7.4-10.4 SP Automated blood neutrophils/100 leukocytes 58 % 42-75 SP Automated blood lymphocytes/100 leukocytes 33 % 12-44 SP Blood monocytes/100 leukocytes 8 % 0-12 SP Automated blood eosinophils/100 leukocytes 1 % 0-10 SP Automated blood basophils/100 leukocytes 0 % 0-10 SP Blood neutrophils automated count (number/volume) 5.1 10*3 SP7.8 Blood lymphocytes automated count (number/volume) 2.9 10*3 SP4.0 Blood monocytes automated count (number/volume) 0. 7 10*3 SP1.0 Automated eosinophil count 0.1 10*3/uL 0 .0-0.3 SP Automated blood basophil count (count/volume) 0.0 10*3/uL SP0.1 Comprehensive metabolic panel - 04/19/19 22:00 POS Serum or plasma sodium measurement (moles/volume) 142 mmol/L SP 135-145 SP Serum or plasma potassium measurement (moles/volume) 3.3 mmol/L SP 3.6-5.0 SP Serum or plasma chloride measurement (moles/volume) 106 mmol/L SP 98-107 SP Carbon dioxide 25 mmol/L 21-32 SP Serum or plasma anion gap determination (moles/volume) 11 mmol/L SP 5-14 SP Serum or plasma urea nitrogen measurement (mass/volume ) 9 mg/dL SP 7-18 SP Serum or plasma creatinine measurement (mass/volume) 0.80 mg/dL SP 0.60-1.30 SP Serum or plasma urea nitrogen/creatinine mass ratio 11 NRG SP Serum or plasma creatinine measurement w ith calculation of estimated glomerular SP rate > NRG SP Serum or plasma glucose measurement (mass/volume) 113 mg/dL SP105 Serum or plasma calcium measurement (mass/volume) 9.3 mg/dL SP10.1 Serum or plasma total bilirubin measurement (mass/volu me) 0.2 mg/dL SP 0.1-1.0 SP Serum or plasma alkaline phosphatase carley surement (enzymatic activity/volume) SP 108 U/L 40-136 SP Serum or plasma aspartate aminotransfera se measurement (enzymatic SP 8 U/L 5-34 SP Serum or plasma alanine aminotransferase measurement (enzymatic activity/volume) SP 11 U/L 0-55 SP Serum or plasma protein measurement (mass/volume) 7.9 g/dL SP8.2 Serum or plasma albumin measurement (mass/volume) 4.0 g/dL SP4.5 CALCIUM CORRECTED 9.3 mg/dL 8.5-10.1 SP Magnesium - 04/19/19 22:00 POS Magnesium 2.2 mg/dL 1.6-2.4 SP Serum or plasma troponin i.cardiac measu rement (mass/volume) - 04/19/19 22:00 POS Serum or plasma troponin i.cardiac measurement (mass/v olume) < ng/mL POS <0.028 SP PT panel in platelet poor plasma by coag ulation assay - 04/19/19 22:00 POS Prothrombin time (PT) in platelet poor plasma by coagu lation assay SP s 12.2-14.7 SP INR in platelet poor plasma or blood by coagulation as say 1.0 SP 0.8-1.4 SP Activated partial thromboplastin time (a PTT) in platelet poor plasma POS assay - 04/19/19 22:00 Activated partial thromboplastin time (a PTT) in platelet poor plasma POS assay 28 s 24-35 SP Myoglobin, serum - 04/19/19 22:00 POS Myoglobin, serum 17.7 ng/mL 10.0-92.0 SP Lipase - 04/19/19 22:00 POS Lipase 35 U/L 8-78 SP Fibrin D-dimer FEU measurement in platel et poor plasma (mass/volume) - 10/15/19 POS Fibrin D-dimer FEU measurement in platelet poor plasma (mass/volume) POS ug/mL 0.00-0.49 SP Complete blood count (CBC) with automate d white blood cell (WBC) differential - POS 04:20 Blood leukocytes automated count (number/volume) 8.2 10*3/uL POS 4.3-11.0 SP Blood erythrocytes automated count (number/volume) 4.96 10*6/uL SP 4.35-5.85 SP Venous blood hemoglobin measurement (mass/volume) 9.4 g/dL SP16.0 Blood hematocrit (volume fraction) 35 % 35-52 SP Automated erythrocyte mean corpuscular volume 70 [ foz_us] SP99 Automated erythrocyte mean corpuscular h emoglobin (mass per erythrocyte) SP 19 pg 25-34 SP Automated erythrocyte mean corpuscular h emoglobin concentration measurement SP 27 g/dL 32-36 SP Automated erythrocyte distribution width ratio 20. 3 % 10.0- SP Automated blood platelet count (count/volume) 424 10*3/uL SP400 Automated blood platelet mean volume measurement 10.0 [foz_us] SP 7.4-10.4 SP Automated blood neutrophils/100 leukocytes 56 % 42-75 SP Automated blood lymphocytes/100 leukocytes 35 % 12-44 SP Blood monocytes/100 leukocytes 8 % 0-12 SP Automated blood eosinophils/100 leukocytes 0 % 0-10 SP Automated blood basophils/100 leukocytes 0 % 0-10 SP Blood neutrophils automated count (number/volume) 4.6 10*3 SP7.8 Blood lymphocytes automated count (number/volume) 2.9 10*3 SP4.0 Blood monocytes automated count (number/volume) 0. 6 10*3 SP1.0 Automated eosinophil count 0.0 10*3/uL 0 .0-0.3 SP Automated blood basophil count (count/volume) 0.0 10*3/uL SP0.1 Comprehensive metabolic panel - 04/20/19 04:20 POS Serum or plasma sodium measurement (moles/volume) 139 mmol/L SP 135-145 SP Serum or plasma potassium measurement (moles/volume) 3.8 mmol/L SP 3.6-5.0 SP Serum or plasma chloride measurement (moles/volume) 105 mmol/L SP 98-107 SP Carbon dioxide 24 mmol/L 21-32 SP Serum or plasma anion gap determination (moles/volume) 10 mmol/L SP 5-14 SP Serum or plasma urea nitrogen measurement (mass/volume ) 6 mg/dL SP 7-18 SP Serum or plasma creatinine measurement (mass/volume) 0.74 mg/dL SP 0.60-1.30 SP Serum or plasma urea nitrogen/creatinine mass ratio 8 NRG SP Serum or plasma creatinine measurement w ith calculation of estimated glomerular SP rate > NRG SP Serum or plasma glucose measurement (mass/volume) 109 mg/dL SP105 Serum or plasma calcium measurement (mass/volume) 9.0 mg/dL SP10.1 Serum or plasma total bilirubin measurement (mass/volu me) 0.3 mg/dL SP 0.1-1.0 SP Serum or plasma alkaline phosphatase carley surement (enzymatic activity/volume) SP 112 U/L 40-136 SP Serum or plasma aspartate aminotransfera se measurement (enzymatic SP 11 U/L 5-34 SP Serum or plasma alanine aminotransferase measurement (enzymatic activity/volume) SP 11 U/L 0-55 SP Serum or plasma protein measurement (mass/volume) 8.0 g/dL SP8.2 Serum or plasma albumin measurement (mass/volume) 4.0 g/dL SP4.5 CALCIUM CORRECTED 9.0 mg/dL 8.5-10.1 SP Serum or plasma creatine kinase measurem ent (enzymatic activity/volume) - POS 04:20 Serum or plasma creatine kinase measurem ent (enzymatic activity/volume) POS 38 U/L 29-168 SP Serum or plasma troponin i.cardiac measu rement (mass/volume) - 04/20/19 04:20 POS Serum or plasma troponin i.cardiac measurement (mass/v olume) < ng/mL POS <0.028 SP Lipid 1996 panel - 04/20/19 04:20 POS Serum or plasma triglyceride measurement (mass/volume) 57 mg/dL SP <150 SP Serum or plasma cholesterol measurement (mass/volume) 167 mg/dL SP < 200 SP Serum or plasma cholesterol in HDL measurement (mass/v olume) 58 mg/dL SP 40-60 SP Cholesterol in LDL [mass/volume] in serum or plasma by direct assay SP mg/dL 1-129 SP Serum or plasma cholesterol in VLDL measurement (mass/ volume) 11 mg/dL SP 5-40 SP Serum or plasma choriogonadotropin (preg trey test) detection - 04/20/19 04:20 POS Serum or plasma choriogonadotropin ( test) de tection NEGATIVE POS NEGATIVE SP Serum or plasma creatine kinase measurem ent (enzymatic activity/volume) - POS 11:15 Serum or plasma creatine kinase measurem ent (enzymatic activity/volume) POS 32 U/L 29-168 SP Serum or plasma troponin i.cardiac measu rement (mass/volume) - 04/20/19 11:15 POS Serum or plasma troponin i.cardiac measurement (mass/v olume) < ng/mL POS <0.028 SP Complete blood count (CBC) with automate d white blood cell (WBC) differential - POS 05:28 Blood leukocytes automated count (number/volume) 7.6 10*3/uL POS 4.3-11.0 SP Blood erythrocytes automated count (number/volume) 4.65 10*6/uL SP 4.35-5.85 SP Venous blood hemoglobin measurement (mass/volume) 8.8 g/dL SP16.0 Blood hematocrit (volume fraction) 33 % 35-52 SP Automated erythrocyte mean corpuscular volume 71 [ foz_us] SP99 Automated erythrocyte mean corpuscular h emoglobin (mass per erythrocyte) SP 19 pg 25-34 SP Automated erythrocyte mean corpuscular h emoglobin concentration measurement SP 27 g/dL 32-36 SP Automated erythrocyte distribution width ratio 20. 1 % 10.0- SP Automated blood platelet count (count/volume) 388 10*3/uL SP400 Automated blood platelet mean volume measurement 10.2 [foz_us] SP 7.4-10.4 SP Automated blood neutrophils/100 leukocytes 52 % 42-75 SP Automated blood lymphocytes/100 leukocytes 37 % 12-44 SP Blood monocytes/100 leukocytes 10 % 0-12 SP Automated blood eosinophils/100 leukocytes 1 % 0-10 SP Automated blood basophils/100 leukocytes 0 % 0-10 SP Blood neutrophils automated count (number/volume) 4.0 10*3 SP7.8 Blood lymphocytes automated count (number/volume) 2.8 10*3 SP4.0 Blood monocytes automated count (number/volume) 0. 8 10*3 SP1.0 Automated eosinophil count 0.1 10*3/uL 0 .0-0.3 SP Automated blood basophil count (count/volume) 0.0 10*3/uL SP0.1 Whole blood basic metabolic panel - 04/05 01/21 05:28 POS Serum or plasma sodium measurement (moles/volume) 136 mmol/L SP 135-145 SP Serum or plasma potassium measurement (moles/volume) 3.6 mmol/L SP 3.6-5.0 SP Serum or plasma chloride measurement (moles/volume) 105 mmol/L SP 98-107 SP Carbon dioxide 21 mmol/L 21-32 SP Serum or plasma anion gap determination (moles/volume) 10 mmol/L SP 5-14 SP Serum or plasma urea nitrogen measurement (mass/volume ) 11 mg/dL SP 7-18 SP Serum or plasma creatinine measurement (mass/volume) 0.71 mg/dL SP 0.60-1.30 SP Serum or plasma urea nitrogen/creatinine mass ratio 15 NRG SP Serum or plasma creatinine measurement w ith calculation of estimated glomerular SP rate > NRG SP Serum or plasma glucose measurement (mass/volume) 76 mg/dL SP105 Serum or plasma calcium measurement (mass/volume) 8.8 mg/dL SP10.1 Serum iron and total iron binding capaci ty panel - 04/21/19 05:28 POS TIBC 340 % 280-380 SP UIBC 321 % 55-450 SP Serum or plasma iron measurement (mass/volume) 19 % 35-180 SP Total iron binding capacity and transferrin saturation measurement 6 % SP 15-50 SP Serum or plasma ferritin measurement (mass/volume) 11.7 % SP177.0 Pathologist review of blood test by matthias ent - 05/04/19 10:50 POS Blood leukocytes automated count (number/volume) 6.3 10*3/uL SP 4.3-11.0 SP Blood erythrocytes automated count (number/volume) 4.68 10*6/uL SP 4.35-5.85 SP Venous blood hemoglobin measurement (mass/volume) 9.4 g/dL SP16.0 Blood hematocrit (volume fraction) 35 % 35-52 SP Automated erythrocyte mean corpuscular volume 75 [ foz_us] SP99 Automated erythrocyte mean corpuscular h emoglobin (mass per erythrocyte) SP 20 pg 25-34 SP Automated erythrocyte mean corpuscular h emoglobin concentration measurement SP 27 g/dL 32-36 SP Automated erythrocyte distribution width ratio 23. 4 % 10.0- SP Automated blood platelet count (count/volume) 341 10*3/uL SP400 Automated blood platelet mean volume measurement 10.1 [foz_us] SP 7.4-10.4 SP Automated blood neutrophils/100 leukocytes 64 % 42-75 SP Automated blood lymphocytes/100 leukocytes 29 % 12-44 SP Blood monocytes/100 leukocytes 5 % NRG SP Automated blood eosinophils/100 leukocytes 1 % 0-10 SP Automated blood basophils/100 leukocytes 0 % 0-10 SP Blood neutrophils automated count (number/volume) 4.0 10*3 SP7.8 Blood lymphocytes automated count (number/volume) 1.8 10*3 SP4.0 Blood monocytes automated count (number/volume) 0. 4 10*3 SP1.0 Automated eosinophil count 0.1 10*3/uL 0 .0-0.3 SP Automated blood basophil count (count/volume) 0.0 10*3/uL SP0.1 Manual blood segmented neutrophils/100 leukocytes 57 % NRG SP Blood band neutrophils/100 leukocytes 0 % NRG SP Manual blood lymphocytes/100 leukocytes 34 % NRG SP Manual eosinophils/100 leukocytes in nose 4 % NRG SP Manual blood basophils/100 leukocytes 0 % NRG SP Blood polychromasia detection by light microscopy SLIGHT SP Blood anisocytosis detection by light microscopy M ODERATE SP Blood hypochromia detection by light microscopy SL IGHT NRG SP Blood microcytes detection by light microscopy MOD ERATE NRG SP Blood reticulocytes count (number/volume) 90 10*9/ L 24-90 SP Blood reticulocytes/100 erythrocytes 1.92 % 0.50-2.40 SP Serum ragweed IgE antibody assay - 05/04 10:50 POS [id number] 81.7 % 81.7-100.0 SP Serum ragweed IgE antibody assay SEE FOOTNOTE % NRG SP Encounters ACCT No. Visit Date/Time Discharge Status POS Pt. Type Provider Facility Loc./Un it POS Complaint POS [id number] 04/19/2019 23:55:00 18:39:00 SP DIS Inpatient JUAN JOSE SAINZ MD Via [facility] 4TH CHEST PAIN SP [id number] 05/18/2018 11:45:00 23:59:59 SP CLS Preadmit ELDER HERNANDEZ [facility] ONC SP [id number] 05/04/2018 10:50:00 23:59:59 SP CLS Outpatient OTILIO RODRIGUEZ [employer]ODUCTION SUPPORT MANAGER Via [facility] RAD ACUTE LEFT SIDED LOW BACK SP [id number] 2018 12:28:00 018 13:14:00 SP DIS Emergency NORY LOBO MEDIA PRODUCTION SUPPORT MANAGER Via [facility] ER BACK PAIN SP [id number] 01/20/2018 07:50:00 018 10:26:00 SP DIS Emergency PUNEET BLUM, DIMITRIS Jama [facility] ER EXPOSED TO [place] MO NOXIDE SP [id number] 05/11/2019 11:03:[address] SP NENO BLUM, TRUPTI Elam [facility] SP SDC ANEMIA SP
--- OUTSIDE RECORDS SUMMARY | 2019-05-12 17:33 | XMS REPORT | Continuity of Care Document ---
Author Organization Unknown POS Address Unknown SP Phone Unavailable SP Allergies Active Description Code Type Severity POS Reaction Onset Reported/Identified POS to Patient Clinical Status POS Yes No Known Drug Allergies [id number] Drug SP Unknown N/A 01/20/2018 SP SP [...] RADICULOPATHY, LUMBAR REGION SP 04/07/2018 NORY LOBO LETTER[employer] SETTER Ot M54 .5 SP BACK PAIN SP 04/07/2018 NORY LOBO [employer] SETTER Ot Z98.890 SP OTHER SPECIFIED POSTPROCEDURAL STATES SP 05/22/2018 KING OTILIO D [employer] SETTER Ot M47.816 SP SPONDYLOSIS W/O MYELOPATHY OR RADICULOPA SP 05/22/2018 MICHAEL, OTILIO D [employer] SETTER Ot M48.061 SP SPINAL STENOSIS, LUMBAR REGION WITHOUT N SP 05/22/2018 MICHAEL, OTILIO D [employer] SETTER Ot M51.27 SP OTHER INTERVERTEBRAL DISC DISPLACEMENT, SP 05/22/2018 MICHAEL, OTILIO D [employer] SETTER Ot M53.86 SP OTHER SPECIFIED DORSOPATHIES, LUMBAR REG SP 05/22/2018 MICHAEL, OTILIO D [employer] SETTER Ot M99.73 SP CONN TISS AND DISC STENOS OF INTVRT FORA SP 04/20/2019 MICHAEL, OTILIO D [employer] SETTER Ot M47.816 SP SPONDYLOSIS W/O MYELOPATHY OR RADICULOPA SP 04/20/2019 MICHAEL, OTILIO D [employer] SETTER Ot M48.061 SP SPINAL STENOSIS, LUMBAR REGION WITHOUT N SP 04/20/2019 MICHAEL, OTILIO D [employer] SETTER Ot M51.27 SP OTHER INTERVERTEBRAL DISC DISPLACEMENT, SP 04/20/2019 MICHAEL, OTILIO D [employer] SETTER Ot M53.86 SP OTHER SPECIFIED DORSOPATHIES, LUMBAR REG SP 04/20/2019 MICHAEL, OTILIO D [employer] SETTER Ot M99.73 SP CONN TISS AND DISC STENOS OF INTVRT FORA SP 04/21/2019 JUAN JOSE SAINZ MD Ot D50.9 SP DEFICIENCY ANEMIA, UNSPECIFIED SP 04/21/2019 JUAN JOSE SAINZ MD Ot E66.9 SP UNSPECIFIED SP 04/21/2019 JUAN JOSE SAINZ MD Ot I10 SP (PRIMARY) HYPERTENSION SP 04/21/2019 JUAN JOSE SAINZ MD Ot R07.9 SP PAIN, UNSPECIFIED SP 04/21/2019 JUAN JOSE SAINZ MD Ot Z68.4 1 SP MASS INDEX (BMI) 40.0-44.9, ADULT SP 04/21/2019 JUAN JOSE SAINZ MD Ot Z79.8 99 SP CARE HOME (CURRENT) DRUG THERAPY SP 04/21/2019 JUAN [...] JOSE SAINZ MD, Ot Z79.8 99 SP CARE HOME (CURRENT) DRUG THERAPY SP 04/21/2019 JUAN [...] IgE antibody assay - 05/04 10:50 POS [id number] 81.7 % 81.7-100.0 SP Serum ragweed IgE antibody assay SEE FOOTNOTE % NRG SP Encounters ACCT No. Visit Date/Time Discharge Status POS Pt. Type Provider Facility Loc./Un it POS Complaint POS [id number] 04/19/2019 23:55:00 18:39:00 SP DIS Inpatient JUAN JOSE SAINZ MD Via [facility] 4TH CHEST PAIN SP [id number] 05/18/2018 11:45:00 23:59:59 SP CLS Preadmit ELDER HERNANDEZ Via [facility] ONC SP [id number] 05/04/2018 10:50:00 23:59:59 SP CLS Outpatient OTILIO RODRIGUEZ [employer] SETTER Via [facility] RAD ACUTE LEFT SIDED LOW BACK SP [id number] 2018 12:28:00 018 13:14:00 SP DIS Emergency NORY LOBO [employer] SETTER Via [facility] ER BACK PAIN SP [id number] 01/20/2018 07:50:00 018 10:26:00 SP DIS Emergency PUNEET BLUM, DIMITRIS Jama Via [facility] ER EXPOSED TO [place] MO NOXIDE SP [id number] 05/11/2019 11:03:[address] SP NENO BLUM, TRUPTI Elam Via [facility] SP SDC ANEMIA SP
== END 2019-04-21 18:18 | disposition home or self-care (01) ==
LOC: EDUNIT# 21:35 → ER 21:37 → 4TH 23:55
PROVIDERS: ADMIT Family Medicine; ATTEND Family Medicine
DX: R07.9 Chest pain, unspecified (principal); D50.9 Iron deficiency anemia, unspecified; I10 Essential (primary) hypertension; E66.9 Obesity, unspecified; Z68.41 Body mass index [BMI] 40.0-44.9, adult; Z90.49 Acquired absence of other specified parts of digestive tract; Z82.49 Family history of ischemic heart disease and other diseases of the circulatory system; Z79.899 Other long term (current) drug therapy
CPT/HCPCS: 36415; 71045; 78452; 80048; 80053; 80061; 82550; 82728; 83540; 83690; 83735; 83874; 84484; 84703; 85025; 85379; 85610; 85730; 93005; 93017; 93041; 93306; 96374; G0378

== ENCOUNTER 2019-05-13 10:26 | Outpatient (RCR) | payer MEDICAID ==
[2019-05-04 10:30] VITALS: BP 126/87
[2019-05-04 11:02] LABS: ABSOLUTE RETIC # 90 10e9/L (24-90); BASOPHILS % (AUTO) 0 % (0-10); EOSINOPHILS # (AUTO) 0.1 10^3/uL (0.0-0.3); EOSINOPHILS % (AUTO) 1 % (0-10); HEMATOCRIT 35 % (35-52); HEMOGLOBIN 9.4 G/DL (11.5-16.0); LYMPHOCYTES # (AUTO) 1.8 X 10^3 (1.0-4.0); LYMPHOCYTES % (AUTO) 29 % (12-44); MEAN CORPUSCULAR HEMOGLOBIN 20 PG (25-34); MEAN CORPUSCULAR HGB CONC 27 G/DL (32-36); MEAN CORPUSCULAR VOLUME 75 FL (80-99); MEAN PLATELET VOLUME 10.1 FL (7.4-10.4); MONOCYTES # (AUTO) 0.4 X 10^3 (0.0-1.0); MONOCYTES % (AUTO) 6 % (0-12); NEUTROPHILS % (AUTO) 64 % (42-75); PLATELET COUNT 341 10^3/uL (130-400); RED CELL DISTRIBUTION WIDTH 23.4 % (10.0-14.5); RETICULOCYTE % 1.92 % (0.50-2.40); WHITE BLOOD COUNT 6.3 10^3/uL (4.3-11.0)
[2019-05-04 13:05] LABS: ANISOCYTOSIS MODERATE; BAND NEUTROPHILS 0 %; BASOPHILS % (MANUAL) 0 %; EOSINOPHILS % (MANUAL) 4 %; LYMPHOCYTES % (MANUAL) 34 %; MICROCYTOSIS MODERATE; MONOCYTES % (MANUAL) 5 %; NEUTROPHILS % (MANUAL) 57 %; POLYCHROMASIA SLIGHT
[2019-05-04 13:06] LABS: HYPOCHROMASIA SLIGHT
[2019-05-04 13:10] VITALS: BP 118/69
[2019-05-06 09:37] VITALS: BP 131/84
[2019-05-06] MEDS: PROMETHAZINE INJ 25 MG/ML (PHENERGAN) AMP IVP PRN (09:55)
[2019-05-06] MEDS: ONDANSETRON 4 MG/2 ML (SDV) Z0FRAN IVP PRN (09:55)
[2019-05-06] MEDS: IRON SUCROSE 200 MG/10 ML (VENOFER) VIAL IV SCH (10:20)
[2019-05-09] MEDS: PROMETHAZINE INJ 25 MG/ML (PHENERGAN) AMP IVP PRN (10:51)
[2019-05-09] MEDS: ONDANSETRON 4 MG/2 ML (SDV) Z0FRAN IVP PRN (10:51)
[2019-05-09] MEDS: IRON SUCROSE 200 MG/10 ML (VENOFER) VIAL IV SCH (10:51)
[2019-05-09 10:56] VITALS: BP 160/98
[2019-05-11] MEDS: PROMETHAZINE INJ 25 MG/ML (PHENERGAN) AMP IVP PRN (11:31)
[2019-05-11] MEDS: ONDANSETRON 4 MG/2 ML (SDV) Z0FRAN IVP PRN (11:31)
[2019-05-11] MEDS: IRON SUCROSE 200 MG/10 ML (VENOFER) VIAL IV SCH (12:02)
[2019-05-11 12:33] VITALS: BP 148/96
[~2019-05-13] VITALS: Ht 160 cm; Wt 115.0 kg
[~2019-05-13 10:26] MED LIST changes: +AMLO10TA7 PO; +ASPI-983 PO; +DIPH25CA79 PO; +EPINEPHrine INJECTION 1 MG/ML AMP IM PRN; +HYDROCORTISONE 100 MG/2 ML (Solu-CORTEF) VIAL IV PRN; +IRON DEXTRAN INJECTION 1,000 MG in NS (IVPB) 250 ML IV ONE; +IRON DEXTRAN INJECTION 25 MG in NS (IVPB) 5.75 ML IV ONE; +IRON SUCROSE 200 MG/10 ML (VENOFER) VIAL IV ONE; +METO-387 PO; +NS IV 500 ML 500 ML IV SCH; +ONDANSETRON 4 MG/2 ML (SDV) Z0FRAN IVP ONE; +ONDANSETRON 4 MG/2 ML (SDV) Z0FRAN ONE; +PROMETHAZINE INJ 25 MG/ML (PHENERGAN) AMP IVP ONE; +PROMETHAZINE INJ 25 MG/ML (PHENERGAN) AMP ONE; +RT-ALBUTEROL SULF 2.5 MG/3 ML PRE-MIX VIAL IH PRN; +diphenhydrAMINE 50 MG/ML INJ (BENADRYL) IV PRN
[2019-05-13 10:45] VITALS: BP 129/88
[2019-05-13] MEDS: ONDANSETRON 4 MG/2 ML (SDV) Z0FRAN IVP PRN (10:48)
[2019-05-13] MEDS: PROMETHAZINE INJ 25 MG/ML (PHENERGAN) AMP IVP PRN (10:48)
[2019-05-13] MEDS: IRON SUCROSE 200 MG/10 ML (VENOFER) VIAL IV SCH (11:38)
== END 2019-05-13 12:15 | disposition home or self-care (01) ==
LOC: SDC 10:26
PROVIDERS: ATTEND Family Medicine
DX: D56.9 Thalassemia, unspecified (principal)
CPT/HCPCS: 36415; 83020; 85007; 85027; 85045; 96365; 96374; 96375

== ENCOUNTER 2020-09-19 11:26 | Emergency (ER) | payer OTHER, MEDICAID ==
[~2020-09-19] VITALS: Ht 162.5 cm; Wt 109.0 kg
[~2020-09-19 11:26] MED LIST changes: +AMLO-251 PO; -AMLO10TA7 PO; +ASPI-1238 PO; -ASPI-983 PO; -EPINEPHrine INJECTION 1 MG/ML AMP IM PRN; -HYDROCORTISONE 100 MG/2 ML (Solu-CORTEF) VIAL IV PRN; -IRON DEXTRAN INJECTION 1,000 MG in NS (IVPB) 250 ML IV ONE; -IRON DEXTRAN INJECTION 25 MG in NS (IVPB) 5.75 ML IV ONE; -IRON SUCROSE 200 MG/10 ML (VENOFER) VIAL IV ONE; -METO-387 PO; +MTP25TSR PO; -NS IV 500 ML 500 ML IV SCH; -ONDANSETRON 4 MG/2 ML (SDV) Z0FRAN IVP ONE; -ONDANSETRON 4 MG/2 ML (SDV) Z0FRAN ONE; -PROMETHAZINE INJ 25 MG/ML (PHENERGAN) AMP IVP ONE; -PROMETHAZINE INJ 25 MG/ML (PHENERGAN) AMP ONE; -RT-ALBUTEROL SULF 2.5 MG/3 ML PRE-MIX VIAL IH PRN; -diphenhydrAMINE 50 MG/ML INJ (BENADRYL) IV PRN
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
[2020-09-19] MEDS ORDERED: HYDROcodone/APAP 7.5 MG/325 MG (LORTAB, LORCET PLUS) TABLET PO ONE (12:30)
[2020-09-19] MEDS ORDERED: ORPHENADRINE 60 MG/2 ML (NORFLEX) AMP (ED ONLY) IM ONE (12:30)
[2020-09-19] MEDS ORDERED: KETOROLAC 30 MG/ML VIAL IM ONE (12:30)
[2020-09-19 13:07] LABS: BILIRUBIN,URINE NEGATIVE (NEGATIVE); CLARITY,URINE CLEAR; COLOR,URINE YELLOW; GLUCOSE, URINE (UA) NEGATIVE (NEGATIVE); KETONES,URINE NEGATIVE (NEGATIVE); LEUKOCYTE ESTERASE ,URINE NEGATIVE (NEGATIVE); NITRITE,URINE NEGATIVE (NEGATIVE); PROTEIN,URINE NEGATIVE (NEGATIVE)
[2020-09-19 13:19] LABS: BACTERIA,URINE FEW /HPF
--- NOTE | 2020-09-19 13:49 | Diagnostic Imaging Report ---
PROCEDURE: CT lumbar spine without contrast. TECHNIQUE: Multiple contiguous axial images were obtained through the lumbar spine without the use of intravenous contrast. Sagittal and coronal reformations were then performed. Auto Exposure Controls were utilized during the CT exam to meet ALARA standards for radiation dose reduction. INDICATION: Left leg pain. Study is interpreted in correlation with lumbar MR 05/04/2018. FINDINGS: Some leftward convexity lumbar scoliotic curvature showed no obvious change. There was no segmentation anomaly or spinal dysraphism. No paraspinal mass, hemorrhage or fluid collection. Lumbar vertebral statures themselves are normal. There is no anterior or posterior listhesis. The pedicles and pars intact. There was no acute or chronic fracture. Some mild disc bulging at L4-L5 results in moderate right and mild left foraminal stenosis not grossly changed. There is relatively mild biforaminal narrowing at the L5-S1 level unchanged. No substantial degree of canal stenosis. IMPRESSION: Some chronic scoliotic curvature and lower lumbar foraminal stenoses stable from prior MRI. No fracture or acute bony pathology. Dictated by: Dictated on workstation # [id number]
[2020-09-19] MEDS ORDERED: CYCL10TA9 PO (14:23)
[2020-09-19] MEDS ORDERED: ACHD5005 PO (14:23)
[2020-09-19 14:30] VITALS: BP 126/94
== END 2020-09-19 14:29 | disposition home or self-care (01) ==
LOC: EDUNIT# 11:26 → ER 11:30
DX: S39.012A Strain of muscle, fascia and tendon of lower back, initial encounter (principal); I10 Essential (primary) hypertension; F17.200 Nicotine dependence, unspecified, uncomplicated; Z79.82 Long term (current) use of aspirin; Z79.899 Other long term (current) drug therapy; V43.52XA Car driver injured in collision with other type car in traffic accident, initial encounter
CPT/HCPCS: 72131; 81000